=== PATIENT | female | born 1980 | race Caucasian/White ===

== ENCOUNTER 2017-06-06 13:28 | Emergency (ER) | payer BC ==
[2017-06-06] MEDS ORDERED: Alum Hydrox/Mag Hydrox/Simeth 15 ML, Metoclopramide 5 MG, Lidocaine 2% 5 ML PO ONE ×3 (13:43)
[2017-06-06] MEDS ORDERED: Sodium Chloride 0.9% 10 ML Syringe FLUSH PRN (13:43)
[2017-06-06] MEDS ORDERED: Sodium Chloride 0.9% 2.5 ML Syringe FLUSH PRN (13:43)
[2017-06-06] MEDS ORDERED: Aspirin 81 MG Tab.Chew PO ONE (13:43)
[2017-06-06] MEDS ORDERED: Famotidine 20 MG/2 ML SDV IVPUSH ONE (13:43)
[2017-06-06] MEDS ORDERED: Ketorolac 30 MG/ML SDV IVPUSH ONE (13:43)
[2017-06-06 14:41] LABS: CHLORIDE,CL 104 mmol/L (98-110); SODIUM,NA 140 mmol/L (136-146)
--- NOTE | 2017-06-06 14:42 | CR ---
Single view chest The heart lungs mediastinum and bony thorax are normal. Given history of chest pain there is no pneu mothorax. Impression: Normal chest
--- NOTE | 2017-06-06 15:11 | EDM.PDOC ---
ED HPI GENERAL MEDICAL PROBLEM - General Chief Complaint: Chest Pain Stated Complaint: CHEST PAIN Time Seen by Provider: 06/06/17 13:45 Source of Information: Reports: Patient History Limitations: Reports: No Limitations - History of Present Illness INITIAL COMMENTS - FREE TEXT/NARRATIVE: History of present illness: [36-year-old female presents status post chest pain radiating up into the left neck. Patient indicates yesterday after doing cardio at the gym she felt some chest pain that was self-limiting and spontaneously resolved. But then she noticed it return today. Patient indicates she does have anxiety disorder and had started taking some diet pills that she had used before without these symptoms and she would like to be evaluated.] Review of systems: As per history of present illness and below otherwise all systems reviewed and negative. Past medical history: As per history of present illness and as reviewed below otherwise noncontributory. Surgical history: As per history of present illness and as reviewed below otherwise noncontributory. Social history: No reported history of drug or alcohol abuse. Family history: As per history of present illness and as reviewed below otherwise noncontributory. Physical exam: HEENT: Atraumatic, normocephalic, pupils reactive, negative for conjunctival pallor or scleral icterus, mucous membranes moist, throat clear, neck supple, nontender, trachea midline. Lungs: Clear to auscultation, breath sounds equal bilaterally, chest nontender. Heart: S1S2, regular, negative for clicks, rubs, or JVD. Abdomen: Soft, nondistended, nontender. Negative for masses or hepatosplenomegaly. Negative for costovertebral tenderness. Pelvis: Stable nontender. Genitourinary: Deferred. Rectal: Deferred. Extremities: Atraumatic, negative for cords or calf pain. Neurovascular unremarkable. Neuro: Awake, alert, oriented. Cranial nerves II through XII unremarkable. Cerebellum unremarkable. Motor and sensory unremarkable throughout. Exam nonfocal. Assessment is benign save the subjective complaint as noted in history of present illness Diagnostics: [CBC, CMP, troponin, amylase, lipase, EKG, chest x-ray, UA] Therapeutics: [A fluid, Toradol, Zofran] Impression: [Atypical chest pain] Plan: .stop Taking diet pills follow-up with primary care] Definitive disposition and diagnosis as appropriate pending reevaluation and review of above. Left chest and radiating to neck Pain Score (Numeric/FACES): 1 - Related Data Allergies Allergy/AdvReac Type Severity Reaction Status Date / Time No Known Allergies Allergy Verified 06/06/17 13:35 Home Meds: Home Meds Venlafaxine [Effexor XR] 1 tab PO DAILY PRN 11/18/14 [History] ALPRAZolam [Alprazolam] 1 tab PO TID PRN 06/06/17 [History] Oxyelite Extreme 06/06/17 [History] Past Medical History Psychiatric History: Reports: Anxiety, Depression - Infectious Disease History Infectious Disease History: Reports: Chicken Pox - Past Surgical History HEENT Surgical History: Reports: Tonsillectomy Social & Family History - Family History Family Medical History: Noncontributory - Tobacco Use Smoking Status *Q: Never Smoker Second Hand Smoke Exposure: No - Caffeine Use Caffeine Use: Reports: Coffee - Alcohol Use Days Per Week of Alcohol Use: 2 Number of Drinks Per Day: 5 Total Drinks Per Week: 10 - Recreational Drug Use Recreational Drug Use: No ED ROS GENERAL - Review of Systems Review Of Systems: See Below ED EXAM, GENERAL - Physical Exam Exam: See Below (See history of present illness) Course - Vital Signs Last Recorded V/S: Last Vital Signs Temp 37.0 C 06/06/17 13:36 Pulse 68 06/06/17 14:52 Resp 18 06/06/17 14:52 BP 123/87 06/06/17 14:52 Pulse Ox 98 06/06/17 13:36 - Orders/Labs/Meds Orders: Active Orders 24 hr Category Date Time Status Cardiac Monitoring [RC] . DIRECTED Care 06/06/17 13:43 Ordered Sodium Chloride 0.9% [Saline Flush] Med 06/06/17 13:43 Ordered 10 ml FLUSH ASDIRECTED PRN Sodium Chloride 0.9% [Saline Flush] Med 06/06/17 13:43 Ordered 2.5 ml FLUSH ASDIRECTED PRN Saline Lock Insert [OM.PC] Stat Oth 06/06/17 13:43 Ordered Medication Orders Sodium Chloride (Saline Flush) 10 ml FLUSH ASDIRECTED PRN PRN Reason: Keep Vein Open Sodium Chloride (Saline Flush) 2.5 ml FLUSH ASDIRECTED PRN PRN Reason: Keep Vein Open Labs: Laboratory Tests 06/06/17 06/06/1706/06/17 Range/Units 14:14 14:14 14:14 WBC 5.79 (4.0-11.0) K/uL RBC 4.09 L (4.30-5.90) M/uL Hgb 13.3 (12.0-16.0) g/dL Hct 39.5 (36.0-46.0) % MCV 96.6 (80.0-98.0) fL MCH 32.5 H (27.0-32.0) pg MCHC 33.7 (31.0-37.0) g/dL RDW Std Deviation 43.1 (28.0-62.0) fl RDW Coeff of Tay 12 (11.0-15.0) % Plt Count 221 (150-400) K/uL MPV 9.60 (7.40-12.00) fL Neut % (Auto) 62.6 (48.0-80.0) % Lymph % (Auto) 26.1 (16.0-40.0) % Ada % (Auto) 7.3 (0.0-15.0) % Eos % (Auto) 3.3 (0.0-7.0) % Baso % (Auto) 0.7 (0.0-1.5) % Neut # (Auto) 3.6 (1.4-5.7) K/uL Lymph # (Auto) 1.5 (0.6-2.4) K/uL Ada # (Auto) 0.4 (0.0-0.8) K/uL Eos # (Auto) 0.2 (0.0-0.7) K/uL Baso # (Auto) 0.0 (0.0-0.1) K/uL Nucleated RBC % 0.0 /100WBC Nucleated RBCs # 0 K/uL D-Dimer, Quantitative < 0.19 (0.0-0.52) mg/LFEU Sodium 140 (136-146) mmol/L Potassium 3.9 (3.5-5.1) mmol/L Chloride 104 (98-110) mmol/L Carbon Dioxide 25 (21-31) mmol/L BUN 14 (6.0-23.0) mg/dL Creatinine 0.8 (0.6-1.5) mg/dL Est Cr Clr Drug Dosing 95.38 mL/min Estimated GFR (MDRD) > 60.0 ml/min Glucose 91 (60-110) mg/dL Calcium 9.1 (8.8-10.8) mg/dL Total Bilirubin 0.5 (0.1-1.5) mg/dL AST 24 (5-40) IU/L ALT 21 (8-54) IU/L Alkaline Phosphatase 73 (40-150) Troponin I (0.0-0.29) NG/ML Total Protein 7.4 (6.0-8.0) g/dL Albumin 4.3 (3.5-5.0) g/dL Globulin 3.1 (2.0-3.5) g/dL Albumin/Globulin Ratio 1.4 (1.3-2.8) Amylase 32 (10-90) U/L Lipase 14 (7-80) U/L HCG, Qual (NEG) Urine Color Urine Appearance Urine pH (5.0-8.0) Ur Specific [place] (1.001-1.035) Urine Protein (NEGATIVE) mg/dL Urine Glucose (UA) (NEGATIVE) mg/dL Urine Ketones (NEGATIVE) mg/dL Urine Occult Blood (NEGATIVE) Urine Nitrite (NEGATIVE) Urine Bilirubin (NEGATIVE) Urine Urobilinogen (<2.0) EU/dL Ur Leukocyte Esterase (NEGATIVE) Urine RBC (0-2/HPF) Urine WBC (0-5/HPF) Ur Epithelial Cells (NONE-FEW) Amorphous Sediment (NEGATIVE) Urine Bacteria (NEGATIVE) 06/06/17 06/06/17 06/06/17 Range/Units 14:14 14:14 14:25 WBC (4.0-11.0) K/uL RBC (4.30-5.90) M/uL Hgb (12.0-16.0) g/dL Hct (36.0-46.0) % MCV (80.0-98.0) fL MCH (27.0-32.0) pg MCHC (31.0-37.0) g/dL RDW Std Deviation (28.0-62.0) fl RDW Coeff of Tay (11.0-15.0) % Plt Count (150-400) K/uL MPV (7.40-12.00) fL Neut % (Auto) (48.0-80.0) % Lymph % (Auto) (16.0-40.0) % Ada % (Auto) (0.0-15.0) % Eos % (Auto) (0.0-7.0) % Baso % (Auto) (0.0-1.5) % Neut # (Auto) (1.4-5.7) K/uL Lymph # (Auto) (0.6-2.4) K/uL Ada # (Auto) (0.0-0.8) K/uL Eos # (Auto) (0.0-0.7) K/uL Baso # (Auto) (0.0-0.1) K/uL Nucleated RBC % /100WBC Nucleated RBCs # K/uL D-Dimer, Quantitative (0.0-0.52) mg/LFEU Sodium (136-146) mmol/L Potassium (3.5-5.1) mmol/L Chloride (98-110) mmol/L Carbon Dioxide (21-31) mmol/L BUN (6.0-23.0) mg/dL Creatinine (0.6-1.5) mg/dL Est Cr Clr Drug Dosing mL/min Estimated GFR (MDRD) ml/min Glucose (60-110) mg/dL Calcium (8.8-10.8) mg/dL Total Bilirubin (0.1-1.5) mg/dL AST (5-40) IU/L ALT (8-54) IU/L Alkaline Phosphatase (40-150) Troponin I < 0.10 (0.0-0.29) NG/ML Total Protein (6.0-8.0) g/dL Albumin (3.5-5.0) g/dL Globulin (2.0-3.5) g/dL Albumin/Globulin Ratio (1.3-2.8) Amylase (10-90) U/L Lipase (7-80) U/L HCG, Qual NEGATIVE (NEG) Urine Color YELLOW Urine Appearance CLEAR Urine pH 5.5 (5.0-8.0) Ur Specific [place] <= 1.005 (1.001-1.035) Urine Protein NEGATIVE (NEGATIVE) mg/dL Urine Glucose (UA) NEGATIVE (NEGATIVE) mg/dL Urine Ketones NEGATIVE (NEGATIVE) mg/dL Urine Occult Blood TRACE-INTACT (NEGATIVE) Urine Nitrite NEGATIVE (NEGATIVE) Urine Bilirubin NEGATIVE (NEGATIVE) Urine Urobilinogen 0.2 (<2.0) EU/dL Ur Leukocyte Esterase NEGATIVE (NEGATIVE) Urine RBC 0-1 (0-2/HPF) Urine WBC 0-1 (0-5/HPF) Ur Epithelial Cells RARE (NONE-FEW) Amorphous Sediment FEW (NEGATIVE) Urine Bacteria RARE (NEGATIVE) Meds: Medications Generic Name Dose Route Start Last Admin Trade Name Freq PRN Reason Stop Dose Admin Sodium Chloride 10 ml 06/06/17 13:43 Saline Flush FLUSH ASDIRECTED PRN Keep Vein Open Sodium Chloride 2.5 ml 06/06/17 13:43 Saline Flush FLUSH ASDIRECTED PRN Keep Vein Open Discontinued Medications Generic Name Dose Route Start Last Admin Trade Name Freq PRN Reason Stop Dose Admin Aspirin 324 mg 06/06/17 13:43 06/06/17 14:15 Aspirin PO 06/06/17 13:44 324 mg ONETIME ONE Administration Al Hydroxide/Mg Hydroxide 15 0 ml 06/06/17 13:43 06/06/17 14:12 ml/ Metoclopramide HCl 5 mg/ PO 06/06/17 13:44 25 each Lidocaine HCl 5 ml ONETIME ONE Administration Famotidine 20 mg 06/06/17 13:43 06/06/17 14:11 Pepcid IVPUSH 06/06/17 13:44 20 mg ONETIME ONE Administration Ketorolac Tromethamine 30 mg 06/06/17 13:43 06/06/17 14:11 Toradol IVPUSH 06/06/17 13:44 30 mg ONETIME ONE Administration Departure - Departure Time of Disposition: 15:10 Disposition: Home, Self-Care 01 Condition: Good Clinical Impression: Atypical chest pain Instructions: Nonspecific Chest Pain, [id number] Forms: ED Department Discharge Additional Instructions: The following information is given to patients seen in the emergency department who are being discharged to home. This information is to outline your options for follow-up care. We provide all patients seen in our emergency department with a follow-up referral. The need for follow-up, as well as the timing and circumstances, are variable depending upon the specifics of your emergency department visit. If you don't have a primary care physician on staff, we will provide you with a referral. We always advise you to contact your personal physician following an emergency department visit to inform them of the circumstance of the visit and for follow-up with them and/or the need for any referrals to a consulting specialist. The emergency department will also refer you to a specialist when appropriate. This referral assures that you have the opportunity for follow-up care with a specialist. All of these measure are taken in an effort to provide you with optimal care, which includes your follow-up. Under all circumstances we always encourage you to contact your private physician who remains a resource for coordinating your care. When calling for follow-up care, please make the office aware that this follow-up is from your recent emergency room visit. If for any reason you are refused follow-up, please contact the [facility] Emergency Department at and asked to speak to the emergency department charge nurse. Stop taking diet pills Follow-up with PCP 1-2 days return to ED as needed as discussed - My Orders Last 24 Hours: My Active Orders 06/06/17 13:43 Cardiac Monitoring [RC] . DIRECTED Sodium Chloride 0.9% [Saline Flush] 10 ml FLUSH ASDIRECTED PRN Sodium Chloride 0.9% [Saline Flush] 2.5 ml FLUSH ASDIRECTED PRN Saline Lock Insert [OM.PC] Stat - Assessment/Plan Last 24 Hours: My Active Orders 06/06/17 13:43 Cardiac Monitoring [RC] . DIRECTED Sodium Chloride 0.9% [Saline Flush] 10 ml FLUSH ASDIRECTED PRN Sodium Chloride 0.9% [Saline Flush] 2.5 ml FLUSH ASDIRECTED PRN Saline Lock Insert [OM.PC] Stat
[2017-06-06 15:46] VITALS: BP 124/85
== END 2017-06-06 15:47 | disposition home or self-care (01) ==
LOC: MW.ED 13:28
DX: R07.89 Other chest pain (principal); F41.9 Anxiety disorder, unspecified; F32.9 Major depressive disorder, single episode, unspecified; Z98.890 Other specified postprocedural states; Z79.899 Other long term (current) drug therapy
CPT/HCPCS: 36415; 71010; 80053; 81001; 82150; 83690; 84484; 84703; 85025; 85379; 93005; 96374; 96375; 99285; A9270; J1885; 99284

== ENCOUNTER 2023-07-11 08:23 | Day surgery (SDC) | payer BC ==
[~2023-07-11 08:23] MED LIST: Dexmedetomidine 200 MCG/2 ML SDV ONE; Lactated Ringers 1,000 ML IV SCH; Propofol 200 MG/20 ML SDV ONE; Water For Injection, Sterile 20 ML ONE; fentaNYL 100 MCG/2 ML SDV ONE; propofoL 50 ML ONE
[2023-07-11] MEDS ORDERED: Albuterol 0.083% 2.5 MG/3 ML Neb Soln NEB PRN (08:59)
[2023-07-11] MEDS ORDERED: HYDROmorphone 1 MG/ML Syringe IVPUSH PRN (08:59)
[2023-07-11] MEDS ORDERED: Ondansetron 4 MG/2 ML SDV IVPUSH PRN (08:59)
[2023-07-11] MEDS ORDERED: Naloxone 0.4 MG/ML SDV IVPUSH PRN (08:59)
[2023-07-11] MEDS ORDERED: Metoclopramide 10 MG/2 ML SDV IVPUSH PRN (08:59)
[2023-07-11] MEDS ORDERED: fentaNYL 50 MCG/ML SDV IVPUSH ONE (08:59)
[2023-07-11 09:06] LABS: HEMATOCRIT 38.4 % (36.0-46.0); HEMOGLOBIN 12.8 g/dL (12.0-16.0); MEAN CORPUSCULAR HEMOGLOBIN 31.4 pg (27.0-32.0); MEAN CORPUSCULAR HGB CONC 33.3 g/dL (31.0-37.0); MEAN CORPUSCULAR VOLUME 94.3 fL (80.0-98.0); MEAN PLATELET VOLUME 9.4 fL (7.40-12.00); RED BLOOD CELL COUNT 4.07 M/uL (4.30-5.90); WHITE BLOOD CELL COUNT,WBC 5.7 K/uL (4.0-11.0)
[2023-07-11] MEDS ORDERED: Magnesium Sulfate (4.06 MEQ/ML) 5 GM/10 ML SDV ONE (09:35)
[2023-07-11] MEDS ORDERED: Ondansetron 4 MG/2 ML SDV ONE (09:35)
[2023-07-11] MEDS ORDERED: Dexamethasone 4 MG/ML 5 ML MDV ONE (09:35)
[2023-07-11] MEDS ORDERED: Propofol 200 MG/20 ML SDV ONE ×2 (09:40→09:55)
[2023-07-11] MEDS ORDERED: Ketorolac 30 MG/ML SDV ONE (10:12)
[2023-07-11 11:34] VITALS: BP 122/82; PULSE 55
== END 2023-07-11 11:30 | disposition home or self-care (01) ==
LOC: MW.SDS 08:23
PROVIDERS: ATTEND Obstetrics & Gynecology
DX: N84.0 Polyp of corpus uteri (principal); F41.9 Anxiety disorder, unspecified; Z79.899 Other long term (current) drug therapy
CPT/HCPCS: 36415; 58563; 84703; 85027; J1100; J1885; J2405; J2704; J3010; J3475; J7120; J3490

== ENCOUNTER 2025-09-02 10:07 | Day surgery (SDC) | payer BC ==
[~2025-09-02 10:07] MED LIST changes: -Dexmedetomidine 200 MCG/2 ML SDV ONE; -Lactated Ringers 1,000 ML IV SCH; -Propofol 200 MG/20 ML SDV ONE; +Sodium Chloride 0.9% 10 ML Syringe FLUSH PRN; +Sodium Chloride 0.9% 2.5 ML Syringe FLUSH PRN; -Water For Injection, Sterile 20 ML ONE; -fentaNYL 100 MCG/2 ML SDV ONE; -propofoL 50 ML ONE
[2025-09-02] MEDS: Lactated Ringers 1,000 ML IV SCH (10:50)
[2025-09-02] MEDS ORDERED: propofoL 500 MG/50 ML 50 ML ONE (11:28)
[2025-09-02] MEDS ORDERED: Ketamine HCL/NACL, ISO-OSM 50 MG/5 ML Syringe ONE (11:35)
[2025-09-02] MEDS ORDERED: Ondansetron 4 MG/2 ML SDV ONE (11:44)
[2025-09-02 12:33] VITALS: PULSE 61
[2025-09-02 13:00] VITALS: BP 94/55
== END 2025-09-02 12:55 | disposition home or self-care (01) ==
LOC: MW.SDS 10:07
PROVIDERS: ATTEND Surgery
DX: Z12.11 Encounter for screening for malignant neoplasm of colon (principal); D12.3 Benign neoplasm of transverse colon; K64.2 Third degree hemorrhoids; Z87.891 Personal history of nicotine dependence; Z79.899 Other long term (current) drug therapy
CPT/HCPCS: 45380; J2405; J2704; J7120; 00811; J3490